=== PATIENT | female | born 1980 | race African-American/Black ===

== ENCOUNTER 2016-06-16 14:02 | Emergency (ER) ==
[2016-06-16 14:07] VITALS: BP 115/081
--- NOTE | 2016-06-16 14:21 | PROVIDER DOCUMENTATION ---
HPI-Abdominal Pain/GI Problem - General Source: patient - History of Present Illness-ABD Nature of Presenting Problems: pt is a 36 yo F that presents with low abdominal pain. Patient also c/o wanting to close her eyes and pass out. She has had some diarrhea today, no fever/chills , vomiting, or chest pain. reports having bronchitis recently . she has been worried due to family and hasn't been sleeping well. Abdominal Pain Onset Location: reports: generalized abdomen Pain Radiation: reports: no radiation Quality of Pain: reports: aching Severity in ED: reports: mild Onset/Duration: reports: gradual, 2 days ago Timing: reports: still present, constant Activities at Onset: reports: none Modifying Factors: improves with: nothing Associated Symptoms: reports: diarrhea (x1), weakness. denies: back/neck pain, chest pain, constipation, fever/chills, genitourinary problems, nausea, vomiting Similar Symptoms Previously?: No Recently seen or treated by another doctor?: Yes <Parth Mcclain - Last Filed: 06/16/16 14:25> <Tariq Zuleta - Last Filed: 06/16/16 15:09> - General Chief Complaint: Abdominal Pain Stated Complaint: LOW ABDOMEN PAIN ONSET YESTERDAY Time Seen by Provider: 06/16/16 14:17 Allergies/Adverse Reactions: Patient Allergies Allergy/AdvReac Type Severity Reaction Status Date / Time tramadol HCl * [From [facility]] Allergy RASH Verified 06/16/16 14:07 Home Medications: Home Medication List Medication Instructions Recorded Confirmed Last Taken Type Mecobalamin [B-12] 5,000 mcg PO QAM 04/28/15 02/12/16 09/27/15 History Hydroxyzine [Atarax] 25 mg PO TID #30 tablet 06/16/16 Unknown Rx Review of Systems - Adult - REVIEW OF SYSTEMS - ADULT Constitutional: denies: chills, fever Eyes: denies: decreased vision, blurred vision, double vision Ears, Nose, Mouth & Throat: denies: ear pain, sinus problem, throat swelling Cardiovascular: denies: chest pain, palpitations, syncope Respiratory: denies: cough, shortness of breath, wheezing Gastrointestinal: reports: abdominal pain, diarrhea. denies: nausea, rectal bleeding Genitourinary: reports: no symptoms reported Musculoskeletal: reports: muscle weakness. denies: joint pain, muscle aches Integumentary: reports: no symptoms reported Neurological: denies: dizziness/vertigo, headache/migraines, syncope Psychiatric: reports: no symptoms reported Endocrine: reports: no symptoms reported Hematologic/Lymphatic: reports: no symptoms reported Allergic/Immunologic: reports: no symptoms reported All Other Systems: Reviewed and Negative <Parth Mcclain - Last Filed: 06/16/16 14:25> Past History - Adult - PAST MEDICAL HISTORY-ADULT Review of Records: reports: Old Records Reviewed, Nursing Assessment Review, Medications Reviewed Major Childhood Illnesses: reports: denies history Cardiovascular: reports: denies history Respiratory: reports: other (pneumothorax) Gastrointestinal: reports: GERD Obstetrical/Gynecological: reports: denies history Genitourinary: reports: kidney stones Musculoskeletal: reports: denies history Neurological: reports: denies history Psychiatric: reports: depression Endocrine/Immune: reports: denies history Other Conditions: reports: denies history - PRIOR SURGERIES/PROCEDURES Surgical/Procedure History: reports: cholecystectomy, other (fluid drained off spine ) - IMMUNIZATION STATUS Childhood Immunizations: See Nurse Assessment Flu Vaccine: See Nurse Assessment - FAMILY HISTORY Family History: reviewed, not pertinent - SOCIAL HISTORY Smoking: cigarettes, less than 1 pack/day Substance Use: marijuana Alcohol Use Frequency: occasionally Living Situation: family <Parth Mcclain - Last Filed: 06/16/16 14:25> Physical Exam-General - PHYSICAL EXAM-ADULT Initial Vital Signs Reviewed: Yes - CONSTITUTIONAL General Appearance: alert, no apparent distress, obese - EYES Eyes: PERRL/EOMI, pink conjunctivae - HEAD, EARS, NOSE, MOUTH & THROAT HENMT: normocephalic/atraumatic, moist mucous membranes, normal ENT inspection - NECK Neck: full range of motion, normal inspection - RESPIRATORY Respiratory: lungs clear, normal breath sounds, no respiratory distress, no accessory muscle use - CARDIOVASCULAR Cardiovascular: regular rate, rhythm, no edema, no murmur - GASTROINTESTINAL (ABDOMEN) Abdominal Exam: normal bowel sounds, non tender, soft, no organomegaly, no pulsatile mass - MUSCULOSKELETAL Extremity: normal range of motion, normal inspection, no pedal edema - SKIN Integumentary: normal color, warm/dry - NEUROLOGIC Neurologic: grossly normal, no motor/sensory deficits - PSYCHIATRIC Psych/Mental Status: normal mood/affect, normal thought content, normal thought process, oriented x 3 <Parth Mcclain - Last Filed: 06/16/16 14:25> Progress - PLAN OF CARE/RESULTS Progress/Plan/Lab Results: Vital Signs - 24 hr 06/16/16 14:05 Temperature 97.4 F L Pulse Rate 96 H Respiratory 20 Rate Blood Pressure 115/081 O2 Sat by Pulse 99 Oximetry Orders Category Date Time Status CBC WITH DIFF [HEME] Stat Lab 06/16/16 14:[address] [URINALYSIS] Stat Lab 06/16/16 14:30 Completed URINE MICROSCOPIC [URINALYSIS] Stat Lab 06/16/16 14:30 Completed Laboratory Tests 06/16/16 06/16/16 14:30 14:49 WBC 4.94 RBC 4.57 Hgb 13.5 Hct 41.2 MCV 90.2 MCH 29.5 MCHC 32.8 L RDW Std Deviation 14.3 Plt Count 214 MPV 11.6 H Immature Gran % (Auto) 0.2 Neut % (Auto) 36.2 L Lymph % (Auto) 48.8 [place] % (Auto) 9.5 H Eos % (Auto) 4.7 Baso % (Auto) 0.6 Immature Gran # (Auto) 0.01 Neut # (Auto) 1.79 Lymph # (Auto) 2.41 [place] # (Auto) 0.47 Eos # (Auto) 0.23 Baso # (Auto) 0.03 Urine Source CLEAN CATCH Urine Color YELLOW Urine Clarity CLEAR Urine pH 5.0 Ur Specific [place] 1.020 Urine Protein NEGATIVE Urine Ketones NEGATIVE Urine Blood 1+ A Urine Nitrite NEGATIVE Urine Bilirubin NEGATIVE Urine Urobilinogen NORMAL Urine Microscopic RBC <10 Urine WBC NEGATIVE Urine Microscopic WBC <10 Ur Epithelial Cells >10 A Urine Glucose NEGATIVE <Tariq Zuleta - Last Filed: 06/16/16 15:09> Departure <Parth Mcclain - Last Filed: 06/16/16 14:25> - Departure Time of Disposition Order: 15:08 Certified Medical Emergency: Emergent <Tariq Zuleta - Last Filed: 06/16/16 15:09> - Departure DIAGNOSIS: Anxiety Abdominal pain Qualifiers: Abdominal location: generalized Qualified Code(s): R10.84 - Generalized abdominal pain Disposition: HOME 01 Condition: Stable Additional Instructions: ED Follow Up Instructions: You have been treated by a care provider in the Emergency Department. These instructions are being provided to you so you can have an understanding of how to care for yourself upon discharge. Upon discharge from the Emergency Department, you are responsible for making arrangements for follow-up care by a physician of your choice. Take all prescribed medications as directed. Return to the Emergency Department immediately for any new or worsening symptoms. You may call the Physician Referral phone number at [phone] to obtain a list of Physicians who are taking new patients. Prescriptions: Hydroxyzine [Atarax] 25 mg PO TID #30 tablet Referrals: Manolo Root MD [Primary Care Provider] - Call for Appoint. 1-2days Attestation - Scribe Verification/Attestation Scribe:: Parth Mcclain Acting as Scribe for:: Tariq Zuleta Scribe documention review:: This chart was documented by a scribe and accurately reflects the service the provider performed and the decisions made by the provider. <Parth Mcclain - Last Filed: 06/16/16 14:25> Physician Attestation - Physician Attestation I, the provider, attest to the following statement:: Tariq Zuleta Physician documentation Attestation:: This documentation recorded by the scribe accurately reflects the service I personally performed and the decisions made by me. <Parth Mcclain - Last Filed: 06/16/16 14:25>
[2016-06-16 14:43] LABS: URINE SOURCE CLEAN CATCH
[2016-06-16 14:50] LABS: BILIRUBIN URINE NEGATIVE (NEGATIVE); BLOOD URINE 1+ (NEGATIVE); CLARITY CLEAR (CLEAR); COLOR YELLOW; GLUCOSE URINE NEGATIVE (NEGATIVE); LEUKOCYTES URINE NEGATIVE (NEGATIVE); NITRITE URINE NEGATIVE (NEGATIVE); PROTEIN URINE NEGATIVE (NEGATIVE); URINE MICROSCOPIC NEEDED? YES; UROBILINOGEN URINE NORMAL
[2016-06-16 14:54] LABS: MANUAL DIFF NEEDED? NO
[2016-06-16 14:55] LABS: URINE WBC <10 /HPF (<10)
[2016-06-16 14:56] LABS: BASO% 0.6 % (0.0-0.8); EOS# 0.23 X1000 (0.0-0.7); EOS% 4.7 % (0.0-10.0); HEMATOCRIT 41.2 % (37.0-47.0); HEMOGLOBIN 13.5 g/dL (12.0-16.0); IMM GRAN# 0.01 X1000 (0.0-0.04); IMM GRAN% 0.2 % (0.0-0.5); LYMPH# 2.41 X1000 (1.2-3.4); LYMPH% 48.8 % (20.5-51.1); MCH 29.5 PG (27-31); MCHC 32.8 g/dL (33-37); MCV 90.2 FL (81-99); MONO# 0.47 X1000 (0.11-0.59); MONO% 9.5 % (1.7-9.3); MPV 11.6 FL (7.4-10.4); NEUT% 36.2 % (42.2-75.2); PLT 214 X1000 (130-400); RBC 4.57 XMIL (4.2-5.4)
[2016-06-16 14:56] LABS: URINE EPITHELIAL CELLS >10 /HPF (<10); URINE RBC <10 /HPF (<10)
== END 2016-06-16 15:23 | disposition home or self-care (01) ==
LOC: P.ED 14:02
DX: R10.84 Generalized abdominal pain (principal); F41.9 Anxiety disorder, unspecified; R10.30 Lower abdominal pain, unspecified; R19.7 Diarrhea, unspecified; R53.1 Weakness; E66.9 Obesity, unspecified; F17.210 Nicotine dependence, cigarettes, uncomplicated; Z87.442 Personal history of urinary calculi
CPT/HCPCS: 81001; 85025; 99283